=== PATIENT | female | born 1995 | race Two or more races ===

== ENCOUNTER 2025-09-25 10:14 | Outpatient (CLI) | payer OTHER | END 2025-09-25 10:22 | disposition home or self-care (01) | LOC: PRENATAL 10:14 | PROVIDERS: ATTEND Obstetrics & Gynecology Maternal & Fetal Medicine | DX: O44.02 Complete placenta previa NOS or without hemorrhage, second trimester (principal); Z3A.20 20 weeks gestation of pregnancy ==

== ENCOUNTER 2025-11-18 12:07 | Outpatient (CLI) | payer OTHER | END 2025-11-18 12:08 | disposition home or self-care (01) | LOC: PRENATAL 12:07 | PROVIDERS: ATTEND Obstetrics & Gynecology Maternal & Fetal Medicine | DX: O26.843 Uterine size-date discrepancy, third trimester (principal); O43.93 Unspecified placental disorder, third trimester; Z3A.28 28 weeks gestation of pregnancy ==